=== PATIENT | female | born 1965 | race Caucasian/White ===

== ENCOUNTER 2016-07-06 05:54 | Day surgery (SDC) | payer OTHER ==
[2016-07-06 06:37] VITALS: BMI 32.3
--- NOTE | 2016-07-06 07:04 | HP ---
Admitting History and Physical - Admission History of Present Illness: patient is a 51 y/o female with a past medical history of scizophrenia, DVT, anemia, orthostatic hypotension. patient is a resident of [facility]. patient presents for ECT. She has received ECT 5 years ago with good results as per the patient. She reports wanting to restart ECT because she is hearing voices. Patient reports the voices are telling her "bad things". Patient reports the voices are telling her to harm herself. However, patient denies any suicidal plan. Patient denies any visual hallucination. Patient does reports a suicide attempt 10 years ago. History Source: Patient, Medical Record, Caregiver Limitations to Obtaining History: No Limitations - Past Medical History Cardiovascular: Yes: Other (orthostatic hypotension) ...LMP Comment: ABOUT 5 YEARS AGO Heme/Onc: Yes: Anemia, Other - Advance Directives Advance Directives: Yes: Health Care Proxy - Smoking History Smoking history: Never smoked Have you smoked in the past 12 months: No - Alcohol/Substance Use Hx Alcohol Use: No History of Substance Use: reports: None - Social History Usual Living Arrangement: Yes: Other ([facility]) History of Recent Travel: No Home Medications - Allergies Allergies/Adverse Reactions: Allergies Allergy/AdvReac Type Severity Reaction Status Date / Time No Known Drug Allergies Allergy Verified 07/05/16 12:07 - Home Medications Home Medications: Ambulatory Orders Acetaminophen [Tylenol -] 650 mg PO Q6H 07/05/16 Ammonium Lactate Lotion [Lac-Hydrin 12% Lotion -] 1 applic TP HS 07/05/16 Bisacodyl [Laxative] 5 mg PO HS 07/05/16 Cholecalciferol (Vitamin D3) [Vitamin D3 -] 1,000 unit PO DAILY 07/05/16 Clozapine [Clozapine Odt] 150 mg PO DAILY 07/05/16 Clozapine [Clozapine Odt] 350 mg PO HS 07/05/16 Divalproex Sodium [Depakote] 750 mg PO DAILY 07/05/16 Divalproex [Depakote -] 1,000 mg PO HS 07/05/16 Docusate Sodium [Colace -] 100 mg PO DAILY 07/05/16 Gabapentin 100 mg PO BID 07/05/16 Ipratropium [place] 15 ml NS DAILY 07/05/16 Lactulose (Oral Use) [Cephulac -] 20 gm PO DAILY 07/05/16 Lorazepam [Ativan] 1 mg PO DAILY 07/05/16 Lorazepam [Ativan] 1 mg PO Q6H PRN 07/05/16 Methimazole 5 mg PO ASDIR 07/05/16 Methimazole 10 mg PO ASDIR 07/05/16 Metronidazole 0.75% Gel [Metrogel 0.75% Gel -] 1 applic TP BID 07/05/16 Polyethylene Glycol 3350 [Gavilax] 17 gm PO DAILY 07/05/16 Sertraline HCl [Zoloft -] 50 mg PO DAILY 07/05/16 Family Disease History - Family Disease History Family History: Unremarkable Review of Systems - Review of Systems Constitutional: reports: No Symptoms Eyes: reports: No Symptoms HENT: reports: No Symptoms Neck: reports: No Symptoms Cardiovascular: reports: No Symptoms Respiratory: reports: No Symptoms Gastrointestinal: reports: No Symptoms Genitourinary: reports: No Symptoms Breasts: reports: No Symptoms Reported Musculoskeletal: reports: No Symptoms Integumentary: reports: No Symptoms Neurological: reports: No Symptoms Endocrine: reports: No Symptoms Hematology/Lymphatic: reports: No Symptoms Psychiatric: reports: Hallucinations, Suicidal Physical Examination Vital Signs: Vital Signs Temperature 98.1 F 07/06/16 06:29 Pulse Rate 80 07/06/16 06:29 Respiratory Rate 18 07/06/16 06:29 Blood Pressure 94/65 07/06/16 06:29 O2 Sat by Pulse Oximetry (%) 96 07/06/16 06:29 Constitutional: Yes: Well Nourished, No Distress, Calm Eyes: Yes: WNL, Conjunctiva Clear, EOM Intact HENT: Yes: WNL, Atraumatic, Normocephalic Neck: Yes: WNL, Supple, Trachea Midline Cardiovascular: Yes: WNL, Regular Rate and Rhythm, S1, S2 Respiratory: Yes: WNL, Regular, CTA Bilaterally Gastrointestinal: Yes: WNL, Normal Bowel Sounds, Soft ...Rectal Exam: Yes: Deferred Renal/: Yes: WNL Breast(s): Yes: WNL Musculoskeletal: Yes: WNL Extremities: Yes: WNL Edema: No Peripheral Pulses WNL: Yes Peripheral Pulses: Left Radial: 4+, Right Radial: 4+, Left Doralis Pedis: 3+, Right Dorsalis Pedis: 3+, Left Femoral: 3+, Right Femoral: 3+ Integumentary: Yes: WNL Neurological: Yes: WNL, Alert, Oriented ...Motor Strength: WNL Psychiatric: Yes: WNL, Alert, Oriented Labs: reviewed 06/19/16 Imaging - Results EKG: Image Reviewed, Other (nsr no ischemic changes) Assessment/Plan patient is a 51 y/o female that presents for ECT, pt has received ECT in the past and denies any adverse reaction to anesthesia labs and ekg reviewed pt is low risk for procedure informed consent, risk/benefits to be obtained by Dr Melo
[2016-07-06] MEDS ORDERED: KETAMINE HCL 500 MG/10 ML VIAL ONE (07:20)
[2016-07-06 08:32] VITALS: PULSE 90; TEMP 97.8
[2016-07-06 09:01] VITALS: BP 117/65
[2016-07-06] MEDS ORDERED: ONDANSETRON 4 MG/2 ML VIAL IVPUSH PRN (10:15)
[2016-07-06] MEDS ORDERED: LACTATED RINGERS SOLUTION 1,000 ML IV SCH (10:15)
== END 2016-07-06 09:00 ==
LOC: FECT 05:54
PROVIDERS: ATTEND Psychiatry & Neurology Psychiatry
PROC: GZB4ZZZ Other Electroconvulsive Therapy (ICD-10-PCS; principal; 2016-07-06 07:00)
DX: F33.2 Major depressive disorder, recurrent severe without psychotic features (principal)
CPT/HCPCS: 84703; 90870; 94760

== ENCOUNTER 2016-07-09 05:40 | Day surgery (SDC) | payer OTHER ==
[2016-07-06 17:34] VITALS: BMI 32.3
[2016-07-09] MEDS ORDERED: ONDANSETRON 4 MG/2 ML VIAL IVPUSH PRN (06:45)
[2016-07-09] MEDS ORDERED: KETAMINE HCL 500 MG/10 ML VIAL ONE (07:12)
[2016-07-09 08:21] VITALS: TEMP 98
[2016-07-09 08:42] VITALS: BP 125/76; PULSE 61
== END 2016-07-09 09:00 ==
LOC: FECT 05:40
PROVIDERS: ATTEND Psychiatry & Neurology Psychiatry
PROC: GZB4ZZZ Other Electroconvulsive Therapy (ICD-10-PCS; principal; 2016-07-09 07:45)
DX: F33.2 Major depressive disorder, recurrent severe without psychotic features (principal)
CPT/HCPCS: 84703; 90870; 94760

== ENCOUNTER 2016-07-11 05:37 | Day surgery (SDC) | payer OTHER ==
[2016-07-10 11:51] VITALS: BMI 32.3
[2016-07-11] MEDS ORDERED: KETAMINE HCL 500 MG/10 ML VIAL ONE (06:58)
[2016-07-11] MEDS ORDERED: LACTATED RINGERS SOLUTION 1,000 ML IV SCH (07:30)
[2016-07-11] MEDS ORDERED: PROMETHAZINE HCL 25 MG/1 ML VIAL IVPUSH PRN (07:30)
[2016-07-11] MEDS ORDERED: ONDANSETRON 4 MG/2 ML VIAL IVPUSH PRN (07:30)
[2016-07-11 07:37] VITALS: TEMP 97.7
[2016-07-11 08:20] VITALS: BP 110/76; PULSE 86
== END 2016-07-11 08:24 | disposition home or self-care (01) ==
LOC: FECT 05:37
PROVIDERS: ATTEND Psychiatry & Neurology Psychiatry
PROC: GZB4ZZZ Other Electroconvulsive Therapy (ICD-10-PCS; principal; 2016-07-11 07:15)
DX: F33.2 Major depressive disorder, recurrent severe without psychotic features (principal)
CPT/HCPCS: 90870; 94760

== ENCOUNTER 2016-07-13 05:30 | Day surgery (SDC) | payer OTHER ==
[2016-07-12 14:48] VITALS: BMI 32.3
[2016-07-13 07:00] VITALS: TEMP 97.8
[2016-07-13 08:37] VITALS: PULSE 92
[2016-07-13 08:39] VITALS: BP 116/78
== END 2016-07-13 09:00 ==
LOC: FECT 05:30
PROVIDERS: ATTEND Psychiatry & Neurology Psychiatry
PROC: GZB4ZZZ Other Electroconvulsive Therapy (ICD-10-PCS; principal; 2016-07-13 07:00)
DX: F33.2 Major depressive disorder, recurrent severe without psychotic features (principal)
CPT/HCPCS: 84703; 90870; 94760

== ENCOUNTER 2016-07-16 05:36 | Day surgery (SDC) | payer OTHER ==
[2016-07-13 11:58] VITALS: BMI 32.3
[2016-07-16 06:15] VITALS: TEMP 97.7
[2016-07-16] MEDS ORDERED: KETAMINE HCL 500 MG/10 ML VIAL ONE (07:01)
[2016-07-16 08:29] VITALS: BP 124/79; PULSE 88
[2016-07-16] MEDS ORDERED: LACTATED RINGERS SOLUTION 1,000 ML IV SCH (09:00)
== END 2016-07-16 08:45 ==
LOC: FECT 05:36
PROVIDERS: ATTEND Psychiatry & Neurology Psychiatry
PROC: GZB4ZZZ Other Electroconvulsive Therapy (ICD-10-PCS; principal; 2016-07-16 07:00)
DX: F33.2 Major depressive disorder, recurrent severe without psychotic features (principal)
CPT/HCPCS: 90870; 94760

== ENCOUNTER 2016-07-18 05:37 | Day surgery (SDC) | payer OTHER ==
[2016-07-17 14:57] VITALS: BMI 32.3
[2016-07-18 06:29] VITALS: TEMP 98.2
[2016-07-18] MEDS ORDERED: KETAMINE HCL 500 MG/10 ML VIAL ONE (07:10)
[2016-07-18 08:35] VITALS: BP 120/80; PULSE 96
[2016-07-18] MEDS ORDERED: ONDANSETRON 4 MG/2 ML VIAL IVPUSH PRN (08:59)
== END 2016-07-18 08:35 ==
LOC: FECT 05:37
PROVIDERS: ATTEND Psychiatry & Neurology Psychiatry
PROC: GZB4ZZZ Other Electroconvulsive Therapy (ICD-10-PCS; principal; 2016-07-18 07:00)
DX: F33.2 Major depressive disorder, recurrent severe without psychotic features (principal)
CPT/HCPCS: 84703; 90870; 94760

== ENCOUNTER 2016-07-20 05:39 | Day surgery (SDC) | payer OTHER ==
[2016-07-17 14:48] VITALS: BMI 32.3
[2016-07-20] MEDS ORDERED: KETAMINE HCL 500 MG/10 ML VIAL ONE (06:57)
[2016-07-20 09:09] VITALS: TEMP 98.7
[2016-07-20 09:10] VITALS: BP 130/80; PULSE 89
[2016-07-20] MEDS ORDERED: ACETAMINOPHEN 325 MG TABLET (FP) ONE (09:14)
== END 2016-07-20 09:00 ==
LOC: FECT 05:39
PROVIDERS: ATTEND Psychiatry & Neurology Psychiatry
PROC: GZB4ZZZ Other Electroconvulsive Therapy (ICD-10-PCS; principal; 2016-07-20 07:00)
DX: F33.2 Major depressive disorder, recurrent severe without psychotic features (principal)
CPT/HCPCS: 90870; 94760

== ENCOUNTER 2016-07-30 05:35 | Day surgery (SDC) | payer OTHER ==
[2016-07-24 11:12] VITALS: BMI 32.3
[2016-07-30] MEDS ORDERED: KETAMINE HCL 500 MG/10 ML VIAL ONE (07:14)
[2016-07-30 08:37] VITALS: TEMP 97.5
[2016-07-30 10:29] VITALS: BP 121/79; PULSE 105
== END 2016-07-30 09:30 | disposition home or self-care (01) ==
LOC: FECT 05:35
PROVIDERS: ATTEND Psychiatry & Neurology Psychiatry
PROC: GZB4ZZZ Other Electroconvulsive Therapy (ICD-10-PCS; principal; 2016-07-30 07:00)
DX: F33.2 Major depressive disorder, recurrent severe without psychotic features (principal)
CPT/HCPCS: 84703; 90870; 94760

== ENCOUNTER 2016-08-01 05:36 | Day surgery (SDC) | payer OTHER ==
[2016-07-30 14:40] VITALS: BMI 32.3
[2016-08-01 06:41] VITALS: TEMP 98.2
[2016-08-01] MEDS ORDERED: KETAMINE HCL 500 MG/10 ML VIAL ONE (07:10)
[2016-08-01 08:28] VITALS: PULSE 92
[2016-08-01 08:52] VITALS: BP 134/82
== END 2016-08-01 08:54 | disposition home or self-care (01) ==
LOC: FECT 05:36
PROVIDERS: ATTEND Psychiatry & Neurology Psychiatry
PROC: GZB4ZZZ Other Electroconvulsive Therapy (ICD-10-PCS; principal; 2016-08-01 07:00)
DX: F33.2 Major depressive disorder, recurrent severe without psychotic features (principal)
CPT/HCPCS: 90870; 94760

== ENCOUNTER 2016-08-03 06:01 | Day surgery (SDC) | payer OTHER ==
[2016-08-03 06:16] VITALS: TEMP 98
[2016-08-03] MEDS ORDERED: KETAMINE HCL 500 MG/10 ML VIAL ONE (07:02)
[2016-08-03] MEDS ORDERED: LACTATED RINGERS SOLUTION 1,000 ML IV SCH (07:45)
[2016-08-03 08:11] VITALS: PULSE 92
[2016-08-03 08:45] VITALS: BP 136/84
[2016-08-03] MEDS ORDERED: ONDANSETRON 4 MG/2 ML VIAL IVPUSH PRN (09:07)
== END 2016-08-03 08:30 ==
LOC: FECT 06:01
PROVIDERS: ATTEND Psychiatry & Neurology Psychiatry
PROC: GZB4ZZZ Other Electroconvulsive Therapy (ICD-10-PCS; principal; 2016-08-03 07:30)
DX: F33.2 Major depressive disorder, recurrent severe without psychotic features (principal)
CPT/HCPCS: 84703; 90870; 94760

== ENCOUNTER 2016-08-06 05:41 | Day surgery (SDC) | payer OTHER ==
--- NOTE | 2016-08-06 06:51 | HP ---
Admitting History and Physical - Admission History of Present Illness: patient is a 51 y/o female with a past medical history of scizophrenia, DVT, anemia, and orthostatic hypotension. Patient presents for ECT, her last ECT . She reports feeling "Bad" because she keeps hearing voices. patient will not disclose any further information about the voices. She is requesting to be left alone. Patient is a resident of [facility] her direct vp care management denies any recent medication changes, illnesses, or hospitalizations. History Source: Patient Limitations to Obtaining History: No Limitations, Uncooperative - Past Medical History Cardiovascular: Yes: Other (orthostatic hypotension) Heme/Onc: Yes: Anemia, Other - Smoking History Smoking history: Never smoked Have you smoked in the past 12 months: No - Alcohol/Substance Use Hx Alcohol Use: No History of Substance Use: reports: None - Social History Usual Living Arrangement: Yes: Other (psychiatric facility) ADL: Independent History of Recent Travel: No Home Medications - Allergies Allergies/Adverse Reactions: Allergies Allergy/AdvReac Type Severity Reaction Status Date / Time No Known Drug Allergies Allergy Verified 07/17/16 14:42 - Home Medications Home Medications: Ambulatory Orders Acetaminophen [Tylenol .Regular Strength -] 650 mg PO Q6H 07/05/16 Ammonium Lactate Lotion [Lac-Hydrin 12] 1 applic TP HS 07/05/16 Bisacodyl [Laxative] 5 mg PO HS 07/05/16 Cholecalciferol (Vitamin D3) [Vitamin D3 -] 1,000 unit PO DAILY 07/05/16 Clozapine [Clozapine Odt] 350 mg PO HS 07/05/16 Divalproex Sodium [Depakote] 750 mg PO DAILY 07/05/16 Divalproex [Depakote -] 1,000 mg PO HS 07/05/16 Docusate Sodium [Colace -] 100 mg PO DAILY 07/05/16 Gabapentin 100 mg PO BID 07/05/16 Lactulose (Oral Use) [Cephulac -] 20 gm PO DAILY 07/05/16 Lorazepam [Ativan] 1 mg PO DAILY 07/05/16 Lorazepam [Ativan] 1 mg PO Q6H PRN 07/05/16 Methimazole 5 mg PO ASDIR 07/05/16 Methimazole 10 mg PO ASDIR 07/05/16 Metronidazole 0.75% Gel [Metrogel 0.75% Gel -] 1 applic TP BID 07/05/16 Polyethylene Glycol 3350 [Gavilax] 17 gm PO DAILY 07/05/16 Sertraline HCl [Zoloft -] 50 mg PO DAILY 07/05/16 Clozapine [Clozapine Odt] 200 mg PO DAILY 08/01/16 Ipratropium [place] [Atrovent Hfa] 12.9 gm IH DAILY 08/01/16 Family Disease History - Family Disease History Family History: Unremarkable Review of Systems Unable to obtain ROS, reason: pt uncooperative Findings/Remarks: requesting to be left alone Physical Examination Constitutional: Yes: Well Nourished, No Distress, Calm Eyes: Yes: WNL, Conjunctiva Clear, EOM Intact HENT: Yes: WNL, Atraumatic, Normocephalic Neck: Yes: WNL, Supple, Trachea Midline Cardiovascular: Yes: WNL, Regular Rate and Rhythm, S1, S2 Respiratory: Yes: WNL, Regular, CTA Bilaterally Gastrointestinal: Yes: WNL, Normal Bowel Sounds, Soft ...Rectal Exam: Yes: Deferred Renal/: Yes: WNL Musculoskeletal: Yes: WNL Extremities: Yes: WNL Edema: No Peripheral Pulses WNL: Yes Peripheral Pulses: Left Radial: 4+, Right Radial: 4+, Left Doralis Pedis: 3+, Right Dorsalis Pedis: 3+, Left Femoral: 3+, Right Femoral: 3+ Integumentary: Yes: WNL Neurological: Yes: WNL, Alert, Oriented ...Motor Strength: WNL Psychiatric: Yes: WNL, Alert, Oriented (reviewed 06/29) Imaging - Results EKG: Report Reviewed, Other (nsr no ischemic changes) Assessment/Plan pt is 51 y/o female, that presents for ECT, he has received ECT in the past and denies any adverse reaction to anesthesia labs and ekg reviewed pt is low risk for procedure informed consent, risks/benefits to be obtained by Dr Melo
[2016-08-06] MEDS ORDERED: KETAMINE HCL 500 MG/10 ML VIAL ONE (08:02)
[2016-08-06 09:03] VITALS: TEMP 98.2
[2016-08-06 09:28] VITALS: BP 116/78; PULSE 84
== END 2016-08-06 09:30 ==
LOC: FECT 05:41
PROVIDERS: ATTEND Psychiatry & Neurology Psychiatry
PROC: GZB4ZZZ Other Electroconvulsive Therapy (ICD-10-PCS; principal; 2016-08-06 08:00)
DX: F33.2 Major depressive disorder, recurrent severe without psychotic features (principal)
CPT/HCPCS: 90870; 94760

== ENCOUNTER 2016-08-08 05:32 | Day surgery (SDC) | payer OTHER ==
[2016-08-08] MEDS ORDERED: KETAMINE HCL 500 MG/10 ML VIAL ONE (07:34)
[2016-08-08 09:15] VITALS: BP 126/76; PULSE 84; TEMP 97.8
== END 2016-08-08 09:00 | disposition home or self-care (01) ==
LOC: FECT 05:32
PROVIDERS: ATTEND Psychiatry & Neurology Psychiatry
PROC: GZB4ZZZ Other Electroconvulsive Therapy (ICD-10-PCS; principal; 2016-08-08 08:00)
DX: F33.2 Major depressive disorder, recurrent severe without psychotic features (principal)
CPT/HCPCS: 84703; 90870; 94760

== ENCOUNTER 2016-08-10 05:38 | Day surgery (SDC) | payer OTHER ==
[2016-08-09 07:00] VITALS: BMI 32.3
[2016-08-10 06:22] VITALS: TEMP 98
[2016-08-10] MEDS ORDERED: KETAMINE HCL 500 MG/10 ML VIAL ONE (06:54)
[2016-08-10] MEDS ORDERED: LACTATED RINGERS SOLUTION 1,000 ML IV SCH (08:00)
[2016-08-10 08:34] VITALS: BP 123/82; PULSE 90
[2016-08-10] MEDS ORDERED: ONDANSETRON 4 MG/2 ML VIAL IVPUSH PRN (10:15)
== END 2016-08-10 08:30 | disposition home or self-care (01) ==
LOC: FECT 05:38
PROVIDERS: ATTEND Psychiatry & Neurology Psychiatry
PROC: GZB4ZZZ Other Electroconvulsive Therapy (ICD-10-PCS; principal; 2016-08-10 07:15)
DX: F33.2 Major depressive disorder, recurrent severe without psychotic features (principal)
CPT/HCPCS: 90870; 94760

== ENCOUNTER 2016-08-15 05:36 | Day surgery (SDC) | payer OTHER ==
[2016-08-09 13:20] VITALS: BMI 32.3
[2016-08-15] MEDS ORDERED: ONDANSETRON 4 MG/2 ML VIAL IVPUSH PRN (06:46)
[2016-08-15] MEDS ORDERED: LACTATED RINGERS SOLUTION 1,000 ML IV SCH (07:00)
[2016-08-15] MEDS ORDERED: KETAMINE HCL 500 MG/10 ML VIAL ONE (07:03)
[2016-08-15 08:01] VITALS: PULSE 92; TEMP 97.5
[2016-08-15 08:13] VITALS: BP 123/74
== END 2016-08-15 08:16 ==
LOC: FECT 05:36
PROVIDERS: ATTEND Psychiatry & Neurology Psychiatry
PROC: GZB4ZZZ Other Electroconvulsive Therapy (ICD-10-PCS; principal; 2016-08-15 07:00)
DX: F33.2 Major depressive disorder, recurrent severe without psychotic features (principal)
CPT/HCPCS: 84703; 90870; 94760

== ENCOUNTER 2016-08-17 05:39 | Day surgery (SDC) | payer OTHER ==
[2016-08-09 13:27] VITALS: BMI 32.3
[~2016-08-17 05:39] MED LIST: LACTATED RINGERS SOLUTION 1,000 ML IV SCH
[2016-08-17] MEDS ORDERED: KETAMINE HCL 500 MG/10 ML VIAL ONE (07:30)
[2016-08-17 08:54] VITALS: TEMP 98.6
[2016-08-17 08:55] VITALS: BP 119/74; PULSE 93
== END 2016-08-17 09:30 ==
LOC: FECT 05:39
PROVIDERS: ATTEND Psychiatry & Neurology Psychiatry
PROC: GZB4ZZZ Other Electroconvulsive Therapy (ICD-10-PCS; principal; 2016-08-17 07:30)
DX: F33.2 Major depressive disorder, recurrent severe without psychotic features (principal)
CPT/HCPCS: 84703; 90870; 94760

== ENCOUNTER 2016-08-20 05:37 | Day surgery (SDC) | payer OTHER ==
[2016-08-09 13:31] VITALS: BMI 32.3
[2016-08-20 06:23] VITALS: TEMP 98
[2016-08-20] MEDS ORDERED: KETAMINE HCL 500 MG/10 ML VIAL ONE (08:25)
[2016-08-20 08:43] VITALS: BP 125/78; PULSE 94
== END 2016-08-20 09:20 ==
LOC: FECT 05:37
PROVIDERS: ATTEND Psychiatry & Neurology Psychiatry
PROC: GZB4ZZZ Other Electroconvulsive Therapy (ICD-10-PCS; principal; 2016-08-20 07:30)
DX: F33.2 Major depressive disorder, recurrent severe without psychotic features (principal)
CPT/HCPCS: 90870; 94760

== ENCOUNTER 2016-08-22 05:32 | Day surgery (SDC) | payer OTHER ==
[2016-08-22] MEDS ORDERED: KETAMINE HCL 500 MG/10 ML VIAL ONE (07:12)
[2016-08-22 09:03] VITALS: BP 130/88; PULSE 96; TEMP 98.6
[2016-08-22] MEDS ORDERED: LACTATED RINGERS SOLUTION 1,000 ML IV SCH (09:45)
[2016-08-22] MEDS ORDERED: ONDANSETRON 4 MG/2 ML VIAL IVPUSH PRN (10:07)
== END 2016-08-22 09:15 ==
LOC: FECT 05:32
PROVIDERS: ATTEND Psychiatry & Neurology Psychiatry
PROC: GZB4ZZZ Other Electroconvulsive Therapy (ICD-10-PCS; principal; 2016-08-22 08:00)
DX: F33.2 Major depressive disorder, recurrent severe without psychotic features (principal)
CPT/HCPCS: 84703; 90870; 94760

== ENCOUNTER 2016-08-24 05:53 | Day surgery (SDC) | payer OTHER ==
[2016-08-24 06:42] VITALS: BMI 34.0
[2016-08-24] MEDS ORDERED: KETAMINE HCL 500 MG/10 ML VIAL ONE (07:14)
[2016-08-24 08:02] VITALS: PULSE 101; TEMP 97.7
[2016-08-24 09:12] VITALS: BP 102/61
== END 2016-08-24 08:20 ==
LOC: FECT 05:53
PROVIDERS: ATTEND Psychiatry & Neurology Psychiatry
PROC: GZB4ZZZ Other Electroconvulsive Therapy (ICD-10-PCS; principal; 2016-08-24 08:00)
DX: F33.2 Major depressive disorder, recurrent severe without psychotic features (principal)
CPT/HCPCS: 90870; 94760

== ENCOUNTER 2016-08-27 05:37 | Day surgery (SDC) | payer OTHER ==
[2016-08-20 17:57] VITALS: BMI 32.3
[2016-08-27] MEDS ORDERED: SUCCINYLCHOLINE CHLORIDE 200 MG/10 ML VIAL ONE ×4 (05:57)
[2016-08-27] MEDS ORDERED: KETAMINE HCL 500 MG/10 ML VIAL ONE (07:27)
[2016-08-27 08:31] VITALS: TEMP 98
[2016-08-27 08:57] VITALS: BP 136/92; PULSE 92
== END 2016-08-27 08:59 | disposition home or self-care (01) ==
LOC: FECT 05:37
PROVIDERS: ATTEND Psychiatry & Neurology Psychiatry
PROC: GZB4ZZZ Other Electroconvulsive Therapy (ICD-10-PCS; principal; 2016-08-27 07:15)
DX: F33.2 Major depressive disorder, recurrent severe without psychotic features (principal)
CPT/HCPCS: 84703; 90870; 94760

== ENCOUNTER 2016-08-29 05:24 | Day surgery (SDC) | payer OTHER ==
[2016-08-21 13:07] VITALS: BMI 32.3
[2016-08-29] MEDS ORDERED: KETAMINE HCL 500 MG/10 ML VIAL ONE (07:30)
[2016-08-29 08:31] VITALS: TEMP 97.7
[2016-08-29 08:55] VITALS: BP 130/90; PULSE 88
== END 2016-08-29 08:55 ==
LOC: FECT 05:24
PROVIDERS: ATTEND Psychiatry & Neurology Psychiatry
PROC: GZB4ZZZ Other Electroconvulsive Therapy (ICD-10-PCS; principal; 2016-08-29 07:30)
DX: F33.2 Major depressive disorder, recurrent severe without psychotic features (principal)
CPT/HCPCS: 90870; 94760

== ENCOUNTER 2016-08-31 05:39 | Day surgery (SDC) | payer OTHER ==
[2016-08-21 14:07] VITALS: BMI 32.3
[2016-08-31 06:16] VITALS: TEMP 97.4
[2016-08-31] MEDS ORDERED: KETAMINE HCL 500 MG/10 ML VIAL ONE (07:14)
[2016-08-31 08:22] VITALS: BP 118/72; PULSE 89
[2016-08-31] MEDS ORDERED: LACTATED RINGERS SOLUTION 1,000 ML IV SCH (11:00)
[2016-08-31] MEDS ORDERED: ONDANSETRON 4 MG/2 ML VIAL IVPUSH PRN (11:02)
== END 2016-08-31 09:15 ==
LOC: FECT 05:39
PROVIDERS: ATTEND Psychiatry & Neurology Psychiatry
PROC: GZB4ZZZ Other Electroconvulsive Therapy (ICD-10-PCS; principal; 2016-08-31 07:30)
DX: F33.2 Major depressive disorder, recurrent severe without psychotic features (principal)
CPT/HCPCS: 84703; 90870; 94760

== ENCOUNTER 2016-09-03 05:42 | Day surgery (SDC) | payer OTHER ==
[2016-08-21 15:29] VITALS: BMI 32.3
[2016-09-03] MEDS ORDERED: KETAMINE HCL 500 MG/10 ML VIAL ONE (07:31)
[2016-09-03 08:18] VITALS: TEMP 97.7
[2016-09-03 08:50] VITALS: BP 124/77; PULSE 86
== END 2016-09-03 08:54 | disposition home or self-care (01) ==
LOC: FECT 05:42
PROVIDERS: ATTEND Psychiatry & Neurology Psychiatry
PROC: GZB4ZZZ Other Electroconvulsive Therapy (ICD-10-PCS; principal; 2016-09-03 07:30)
DX: F33.2 Major depressive disorder, recurrent severe without psychotic features (principal)
CPT/HCPCS: 90870; 94760

== ENCOUNTER 2016-09-05 05:41 | Day surgery (SDC) | payer OTHER ==
[2016-08-30 12:37] VITALS: BMI 32.3
[2016-09-05 06:25] VITALS: TEMP 98
[2016-09-05] MEDS ORDERED: KETAMINE HCL 500 MG/10 ML VIAL ONE (06:53)
[2016-09-05] MEDS ORDERED: ONDANSETRON 4 MG/2 ML VIAL IVPUSH PRN (07:29)
[2016-09-05] MEDS ORDERED: ACETAMINOPHEN 325 MG TABLET (FP) PO PRN (07:29)
[2016-09-05 08:35] VITALS: BP 136/88; PULSE 94
--- NOTE | 2016-09-05 08:41 | HP ---
Admitting History and Physical - Admission History of Present Illness: patient is a 51 y/o female with a past medical history of DVT, anemia, orthostatic hypotension, and schizophrenia. Patient presents for ect her last ect was 09/03/16. she reports feeling well and reports an improvement in hearing the voices in her head. She denies any recent illness. Patient denies any chest pain, shortness of breath, or dizziness. History Source: Patient Limitations to Obtaining History: No Limitations - Past Medical History Cardiovascular: Yes: Other (orthostatic hypotension) Heme/Onc: Yes: Anemia, Other - Smoking History Smoking history: Never smoked Have you smoked in the past 12 months: No - Alcohol/Substance Use Hx Alcohol Use: No History of Substance Use: reports: None - Social History ADL: Independent History of Recent Travel: No Home Medications - Allergies Allergies/Adverse Reactions: Allergies Allergy/AdvReac Type Severity Reaction Status Date / Time No Known Drug Allergies Allergy Verified 08/22/16 06:18 - Home Medications Home Medications: Ambulatory Orders Acetaminophen [Tylenol .Regular Strength -] 650 mg PO Q6H 07/05/16 Ammonium Lactate Lotion [Lac-Hydrin 12] 1 applic TP HS 07/05/16 Bisacodyl [Laxative] 5 mg PO HS 07/05/16 Cholecalciferol (Vitamin D3) [Vitamin D3 -] 1,000 unit PO DAILY 07/05/16 Clozapine [Clozapine Odt] 350 mg PO HS 07/05/16 Divalproex Sodium [Depakote] 750 mg PO DAILY 07/05/16 Divalproex [Depakote -] 1,000 mg PO HS 07/05/16 Docusate Sodium [Colace -] 100 mg PO DAILY 07/05/16 Gabapentin 100 mg PO DAILY 07/05/16 Lactulose (Oral Use) [Cephulac -] 20 gm PO DAILY 07/05/16 Lorazepam [Ativan] 1 mg PO DAILY 07/05/16 Lorazepam [Ativan] 1 mg PO Q6H PRN 07/05/16 Methimazole 5 mg PO ASDIR 07/05/16 Methimazole 10 mg PO ASDIR 07/05/16 Metronidazole 0.75% Gel [Metrogel 0.75% Gel -] 1 applic TP BID 07/05/16 Polyethylene Glycol 3350 [Gavilax] 17 gm PO DAILY 07/05/16 Sertraline HCl [Zoloft -] 50 mg PO DAILY 07/05/16 Clozapine [Clozapine Odt] 200 mg PO DAILY 08/01/16 Ipratropium [place] [Atrovent Hfa] 12.9 gm IH DAILY 08/01/16 Metformin HCl 500 mg PO BID 09/03/16 Olanzapine [Olanzapine Odt] 5 mg PO Q6H PRN 09/03/16 Family Disease History - Family Disease History Family History: Unremarkable Review of Systems - Review of Systems Constitutional: reports: No Symptoms Eyes: reports: No Symptoms HENT: reports: No Symptoms Neck: reports: No Symptoms Cardiovascular: reports: No Symptoms Respiratory: reports: No Symptoms Gastrointestinal: reports: No Symptoms Genitourinary: reports: No Symptoms Musculoskeletal: reports: No Symptoms Integumentary: reports: No Symptoms Neurological: reports: No Symptoms Endocrine: reports: No Symptoms Hematology/Lymphatic: reports: No Symptoms Psychiatric: reports: No Symptoms Physical Examination Vital Signs: Vital Signs Temperature 98 F 09/05/16 08:00 Pulse Rate 92 H 09/05/16 08:00 Respiratory Rate 18 09/05/16 08:00 Blood Pressure 138/82 09/05/16 08:00 O2 Sat by Pulse Oximetry (%) 97 09/05/16 08:00 Constitutional: Yes: Well Nourished, No Distress, Calm Eyes: Yes: WNL, Conjunctiva Clear, EOM Intact HENT: Yes: WNL, Atraumatic, Normocephalic Neck: Yes: WNL, Supple, Trachea Midline Cardiovascular: Yes: WNL, Regular Rate and Rhythm, S1, S2 Respiratory: Yes: WNL, Regular, CTA Bilaterally Gastrointestinal: Yes: WNL, Normal Bowel Sounds, Soft ...Rectal Exam: Yes: Deferred Renal/: Yes: WNL Musculoskeletal: Yes: WNL Extremities: Yes: WNL Edema: No Peripheral Pulses WNL: Yes Peripheral Pulses: Left Radial: 4+, Right Radial: 4+, Left Doralis Pedis: 3+, Right Dorsalis Pedis: 3+, Left Femoral: 3+, Right Femoral: 3+ Integumentary: Yes: WNL Neurological: Yes: WNL, Alert, Oriented ...Motor Strength: WNL Psychiatric: Yes: WNL, Alert, Oriented Labs: reviewed 5/17 Imaging - Results EKG: Other (nsr no ischemic changes) Assessment/Plan pt is a 51 y/o female, that presents for ect. she has received ect in the past and denies any adverse reaction to anesthesia. labs and ekg reviewed pt is low risk for procedure informed consent, risks/benefits to be obtained by Dr Melo
== END 2016-09-05 08:36 ==
LOC: FECT 05:41
PROVIDERS: ATTEND Psychiatry & Neurology Psychiatry
PROC: GZB4ZZZ Other Electroconvulsive Therapy (ICD-10-PCS; principal; 2016-09-05 07:45)
DX: F33.2 Major depressive disorder, recurrent severe without psychotic features (principal)
CPT/HCPCS: 84703; 90870; 94760

== ENCOUNTER 2016-09-07 06:03 | Day surgery (SDC) | payer OTHER ==
[2016-08-30 12:41] VITALS: BMI 32.3
[2016-09-07] MEDS ORDERED: KETAMINE HCL 500 MG/10 ML VIAL ONE (06:58)
[2016-09-07 08:06] VITALS: BP 133/78; PULSE 69; TEMP 98.2
[2016-09-07] MEDS ORDERED: LACTATED RINGERS SOLUTION 1,000 ML IV SCH (08:30)
== END 2016-09-07 08:30 ==
LOC: FECT 06:03
PROVIDERS: ATTEND Psychiatry & Neurology Psychiatry
PROC: GZB4ZZZ Other Electroconvulsive Therapy (ICD-10-PCS; principal; 2016-09-07 07:00)
DX: F33.2 Major depressive disorder, recurrent severe without psychotic features (principal)
CPT/HCPCS: 90870; 94760

== ENCOUNTER 2016-09-12 05:48 | Day surgery (SDC) | payer OTHER ==
[2016-09-07 11:06] VITALS: BMI 32.3
[2016-09-12] MEDS ORDERED: KETAMINE HCL 500 MG/10 ML VIAL ONE (07:36)
[2016-09-12 08:37] VITALS: TEMP 97.9
[2016-09-12 08:52] VITALS: BP 137/79; PULSE 100
== END 2016-09-12 09:15 ==
LOC: FECT 05:48
PROVIDERS: ATTEND Psychiatry & Neurology Psychiatry
PROC: GZB4ZZZ Other Electroconvulsive Therapy (ICD-10-PCS; principal; 2016-09-12 07:45)
DX: F33.3 Major depressive disorder, recurrent, severe with psychotic symptoms (principal)
CPT/HCPCS: 84703; 90870; 94760

== ENCOUNTER 2016-09-14 05:39 | Day surgery (SDC) | payer OTHER ==
[2016-09-07 13:16] VITALS: BMI 32.3
[2016-09-14] MEDS ORDERED: KETAMINE HCL 500 MG/10 ML VIAL ONE (07:11)
[2016-09-14 08:00] VITALS: TEMP 98.1
[2016-09-14 08:24] VITALS: BP 133/87; PULSE 62
== END 2016-09-14 08:30 ==
LOC: FECT 05:39
PROVIDERS: ATTEND Psychiatry & Neurology Psychiatry
PROC: GZB4ZZZ Other Electroconvulsive Therapy (ICD-10-PCS; principal; 2016-09-14 07:30)
DX: F33.3 Major depressive disorder, recurrent, severe with psychotic symptoms (principal)
CPT/HCPCS: 90870; 94760